=== PATIENT | male | born 1965 | race Caucasian/White ===

== ENCOUNTER 2019-06-27 05:05 | Inpatient (IN) ==
--- NOTE | 2019-06-10 22:18 | PAT Medication Instructions ---
Medication Instructions Date of Service June 10, 2019 Home Medications albuterol sulfate 2 puff INHALATION BID PRN amitriptyline 100 mg PO HS aripiprazole [Abilify] 30 mg PO QAM benztropine 2 mg PO QAM fluticasone furoate-vilanterol [Breo Ellipta] 1 inh INHALATION QAM furosemide 20 mg PO DAILY PRN ketoconazole % TOPICAL 2XWK lithium carbonate 600 mg PO BID meloxicam 7.5 mg PO BID omeprazole 40 mg PO QPM paroxetine HCl 40 mg PO QAM potassium chloride [Klor-Con] 20 meq PO DAILY PRN prazosin 3 mg PO HS rivastigmine tartrate 1.5 - 3 mg PO BID ropinirole 1.5 mg PO QAM ropinirole 4 mg PO HS ASK your surgeon for instructions meloxicam 7.5 mg PO BID STOP 5 DAYS BEFORE SURGERY: rivastigmine tartrate 1.5 - 3 mg PO BID STOP taking 24 hours before surgery ropinirole 1.5 mg PO QAM ropinirole 4 mg PO HS ketoconazole % TOPICAL 2XWK DO NOT take the morning of surgery furosemide 20 mg PO DAILY PRN potassium chloride [Klor-Con] 20 meq PO DAILY PRN Take morning of surgery With a small sip of water, OTHERWISE NOTHING TO EAT OR DRINK AFTER MIDNIGHT: albuterol sulfate 2 puff INHALATION BID PRN (if needed, and bring with you to the hospital) aripiprazole [Abilify] 30 mg PO QAM benztropine 2 mg PO QAM fluticasone furoate-vilanterol [Breo Ellipta] 1 inh INHALATION QAM lithium carbonate 600 mg PO BID paroxetine HCl 40 mg PO QAM Take evening before surgery albuterol sulfate 2 puff INHALATION BID PRN (if needed) amitriptyline 100 mg PO HS furosemide 20 mg PO DAILY PRN (if needed) lithium carbonate 600 mg PO BID omeprazole 40 mg PO QPM potassium chloride [Klor-Con] 20 meq PO DAILY PRN (if needed) prazosin 3 mg PO HS Other Notes If you have any questions please call us at [phone] or [phone] or [phone] or [phone]
--- NOTE | 2019-06-11 11:15 | Anesthesiology Consultation ---
Date of Service June 11, 2019 Assessment & Plan (1) Encounter for pre-operative examination: POSSIBLE DIFFICULT INTUBATION BASED ON VERY LIMITED NECK EXTENSION. Chart Review Chart Review: Acceptable Risk for Surgery (pending pre op testing) and Patient seen in Pre Admission Testing Teaching & Discussion Instructed NPO after midnight before surgery, except medications with 15 cc of water. Medication instructions provided according to the PAT guidelines. History Surgery Operation Date: 06/27/19 12:25 Proposed Procedures p C5 Corpectomy, Spinal Cord Monitoring - Adalberto Diaz DO Height/Weight Height: 5 ft 6 in Weight: 103.8 kg Allergies Allergy/AdvReac Type Severity Reaction Status Date / Time cortisone Allergy Mild Rash Verified 06/05/19 09:06 diazepam [From Valium] AdvReac Unknown Unknown Verified 06/05/19 09:06 Medications Home Medications Medication Instructions Recorded Confirmed Last Taken albuterol sulfate 2 puff INHALATION BID PRN 06/05/19 06/05/19 Unknown amitriptyline 100 mg PO HS 06/05/19 06/05/19 Unknown aripiprazole [Abilify] 30 mg PO QAM 06/05/19 06/05/19 Unknown benztropine 2 mg PO QAM 06/05/19 06/05/19 Unknown fluticasone furoate-vilanterol 1 inh INHALATION QAM 06/05/19 06/05/19 Unknown [Breo Ellipta] furosemide 20 mg PO DAILY PRN 06/05/19 06/05/19 Unknown ketoconazole % TOPICAL 2XWK 06/05/19 Unknown lithium carbonate 600 mg PO BID 06/05/19 06/05/19 Unknown meloxicam 7.5 mg PO BID 06/05/19 06/05/19 Unknown omeprazole 40 mg PO QPM 06/05/19 06/05/19 Unknown paroxetine HCl 40 mg PO QAM 06/05/19 06/05/19 Unknown potassium chloride [Klor-Con] 20 meq PO DAILY PRN 06/05/19 06/05/19 Unknown prazosin 3 mg PO HS 06/05/19 06/05/19 Unknown rivastigmine tartrate 1.5 - 3 mg PO BID 06/05/19 06/05/19 Unknown ropinirole 1.5 mg PO QAM 06/05/19 06/05/19 Unknown ropinirole 4 mg PO HS 06/05/19 06/05/19 Unknown Past Medical History Medical History Anxiety Asthma Breo daily, also albuterol BID Bipolar disorder Chronic obstructive pulmonary disease Depression Gastritis occ flares, on PPI GERD (gastroesophageal reflux disease) Hiatal hernia Migraine HX IN 20'S Night terrors Occasional tremors HANDS/OCC FEET F/U DR PANCHAL Osteoarthritis Post traumatic stress disorder Restless leg syndrome Sleep apnea NO DEVICE SOB (shortness of breath) on exertion Exercise / Class Metabolic Activity III < 4 Walking/Shop/Light housework (+SOB with 1 FOS, no CP. Using cane for ambulation.) Past Surgical History Surgical History H/O cervical spine surgery History of cholecystectomy History of colonoscopy History of esophagogastroduodenoscopy (EGD) Past Anesthesia History No Hx of Anesthesia Complications and No Family Hx of Anesthesia Complications History of PONV No Hx of PONV and Hx of Motion Sickness STOP BANG Total 6 Social History Smoking Status: Former smoker Do You Dip or Chew Tobacco: No Smoking End Date: QUIT 01/26/2008 Hx Alcohol Use: Yes Alcohol type: hard liquor alcohol intake frequency: holidays/special occasions only Hx Substance Use: No Review of Systems Pt denies any recent chest pain, shortness of breath, palpitations, cough, fever or URI. Physical Exam Vital Signs BP: 161/99 (138/86 repeat ~10mins later) P: 84bpm SPO2: 96% RA T: 98.1 F R: 14 Constitutional + obese ENMT Mouth: + dental restorations (Full upper and lower); no chipped teeth and no loose teeth Thyromental Distance: > or= 3.5 Finger Breadths (4) Mallampati Class: III Neck + short neck, + limited neck extension (VERY limited) and + facial hair (short goatee) Respiratory normal respiratory effort Auscultation: lungs clear to auscultation bilaterally and + diminished lung sounds (slightly, B/L) Cardiovascular Rate/Rhythm: regular rate and regular rhythm Heart Sounds: no murmur Extremities: no edema
--- NOTE | 2019-06-11 11:54 | XRay Report ---
TWO VIEW CHEST CLINICAL HISTORY: Preoperative examination. FINDINGS: PA and lateral chest radiographs are obtained. No prior studies are available for compariso n at the time of dictation. The heart is top normal for projection. There is mild bibasilar atelectas is. The lungs and pleural spaces are otherwise clear. There is no pneumothorax. The bony thorax appe ars intact. Cholecystectomy clips are noted in the right upper quadrant. IMPRESSION: No active disease in the chest. ACT 112: Negative or not required by law. Electronically signed by: Timmy Quigley M.D. 06/11/2019 11:53 AM
[2019-06-11 12:37] LABS: Appearance Urine Clear (Clear); Bilirubin Urine Negative (Negative); Blood Urine Negative (Negative); Color Urine Yellow; Glucose Urine UA Negative (Negative); Ketones Urine Negative (Negative); Leukocyte Esterase Urine Negative (Negative); Nitrite Urine Negative (Negative); Protein Urine Negative (Negative); Specific Gravity Urine 1.009 (1.000-1.030); Urobilinogen Urine Negative (Negative)
[2019-06-11 12:39] LABS: Basophils # (auto) 0.02 K/uL (0-0.2); Basophils % (auto) 0.4 %; Eosinophils # (auto) 0.21 K/uL (0-0.5); Eosinophils % (auto) 3.7 %; Hematocrit (blood only) 42.1 % (42-52); Hemoglobin 13.4 g/dL (14.0-18.0); Immature Granulocytes # (auto) 0.07 K/uL (0.00-0.02); Immature Granulocytes % (auto) 1.2 %; Lymphocytes # (auto) 1.18 K/uL (1.2-3.4); Lymphocytes % (auto) 20.7 %; Mean Corpuscular Hemoglobin 28.7 pg (25-34); Mean Corpuscular Hgb Conc 31.8 g/dL (32-36); Mean Corpuscular Volume 90.1 fL (80-100); Mean Platelet Volume 9.5 fL (7.4-10.4); Monocytes # (auto) 0.36 K/uL (0.11-0.59); Monocytes % (auto) 6.3 %; Neutrophils # (auto) 3.87 K/uL (1.4-6.5); Neutrophils % (auto) 67.7 %; Platelet Count 289 K/uL (130-400); RDW Coefficient of Variation 13.5 % (11.5-14.5); RDW Standard Deviation 44.4 fL (36.4-46.3); Red Blood Count 4.67 M/uL (4.7-6.1); White Blood Count 5.71 K/uL (4.8-10.8)
[2019-06-11 12:49] LABS: Partial Thromboplastin Time 25.8 Seconds (21.0-31.0); Prothrombin Time 9.8 Seconds (9.0-12.0)
[2019-06-11 13:11] LABS: BUN Creatinine Ratio 11.1 (10-20); Calcium 8.8 mg/dl (8.5-10.1); Creatinine Clr Calc Pharmacy 92.7 ml/min; Est GFR (African American) 94.6; Est GFR (Non-African American) 81.6; Potassium 4.2 mmol/L (3.5-5.1)
[2019-06-27] MEDS ORDERED: CEFAZOLIN 2000MG 2,000 MG/15 ML SYR IV SCH (06:00)
[2019-06-27] MEDS ORDERED: CeleBREX 200 MG CAP PO SCH (06:00)
[2019-06-27] MEDS ORDERED: ACETAMINOPHEN 500 MG TAB PO SCH (06:00)
[2019-06-27] MEDS ORDERED: LR 15ML/HR IV SCH (06:00)
[2019-06-27] MEDS ORDERED: GABAPENTIN 900 MG DOSE PO SCH (06:00)
[2019-06-27] MEDS ORDERED: HYDROmorphone INJ 2 MG/ML SYR/VIAL ONE (06:53)
[2019-06-27] MEDS ORDERED: LIDOCAINE HCL 2% 2 ML VIAL/AMP(20MG/ML) INFIL ONE (06:53)
[2019-06-27] MEDS ORDERED: PROPOFOL IV EMULSION 10 MG/ML 20 ML VIAL IV ONE ×2 (06:53→08:47)
[2019-06-27] MEDS ORDERED: fentaNYL citrate 100 MCG/2 ML VIAL ONE ×2 (06:53→08:30)
[2019-06-27] MEDS ORDERED: DEXAMETHASONE SOD INJ 4 MG/ML VIAL ONE ×2 (06:53→08:47)
[2019-06-27] MEDS ORDERED: ONDANSETRON INJ 2 MG/ML 2 ML VIAL ONE (06:53)
[2019-06-27] MEDS ORDERED: BACITRACIN INJ 50,000 UNIT VIAL ONE (06:59)
[2019-06-27] MEDS ORDERED: DexMEDEtomidine HCL IV 100 MCG/ML VIAL ONE (07:10)
[2019-06-27] MEDS ORDERED: PHENYLEPHRINE HCL 10 MG/ML VIAL ONE (07:12)
[2019-06-27] MEDS ORDERED: ATROPINE SULFATE 0.1 MG/ML 10ML SYR IV PRN (07:30)
[2019-06-27] MEDS ORDERED: ONDANSETRON INJ 2 MG/ML 2 ML VIAL IV PRN ×2 (07:30→13:50)
[2019-06-27] MEDS ORDERED: fentaNYL citrate 100 MCG/2 ML VIAL IV PRN (07:30)
[2019-06-27] MEDS ORDERED: PROMETHAZINE HCL 6.25 MG in SODIUM CHLORIDE 0.9% 50 ML IV PRN (07:30)
[2019-06-27] MEDS ORDERED: HYDROmorphone INJ 2 MG/ML SYR/VIAL IV PRN (07:30)
[2019-06-27] MEDS ORDERED: ePHEDrine sulfate 50 MG/ML AMP IV PRN (07:30)
--- NOTE | 2019-06-27 07:31 | History & Physical Bridge Note ---
Date of Service June 27, 2019 History & Physical Bridge Note I have examined the patient, reviewed the History & Physical and in the interval since the performance of the History & Physical I have noted the following changes of clinical significance: no changes noted
--- NOTE | 2019-06-27 07:32 | History & Physical Report ---
Date of Service June 27, 2019 Assessment & Plan (1) Cervical stenosis of spinal canal: C5 corpectomy Present on Admission?: Yes History of Present Illness Chief Complaint: Neck and arm pain Primary Care Provider: Andrés Vogel MD This is a 53-year-old male who presents with chronic persistent neck and arm symptoms. After failed extensive course of nonoperative care is here for surgical invention. Allergies Allergy/AdvReac Type Severity Reaction Status Date / Time cortisone Allergy Mild Rash Verified 06/05/19 09:06 diazepam [From Valium] AdvReac Mild blurred Verified 06/27/19 05:44 vision Home Medications Home Medications Medication Instructions Recorded Confirmed Type albuterol sulfate 2 puff INHALATION BID PRN 06/05/19 06/27/19 History amitriptyline 100 mg PO HS 06/05/19 06/27/19 History aripiprazole [Abilify] 30 mg PO QAM 06/05/19 06/27/19 History benztropine 2 mg PO QAM 06/05/19 06/27/19 History fluticasone furoate-vilanterol 1 inh INHALATION QAM 06/05/19 06/27/19 History [Breo Ellipta] furosemide 20 mg PO DAILY PRN 06/05/19 06/27/19 History ketoconazole 2 % TOPICAL 2XWK 06/05/19 06/27/19 History lithium carbonate 600 mg PO BID 06/05/19 06/27/19 History meloxicam 7.5 mg PO BID 06/05/19 06/27/19 History omeprazole 40 mg PO QPM 06/05/19 06/27/19 History paroxetine HCl 40 mg PO QAM 06/05/19 06/27/19 History potassium chloride [Klor-Con] 20 meq PO DAILY PRN 06/05/19 06/27/19 History prazosin 3 mg PO HS 06/05/19 06/27/19 History rivastigmine tartrate 1.5 - 3 mg PO BID 06/05/19 06/27/19 History ropinirole 1.5 mg PO QAM 06/05/19 06/27/19 History ropinirole 4 mg PO HS 06/05/19 06/27/19 History Past Med/Surg History Medical History Anxiety Asthma Breo daily, also albuterol BID Bipolar disorder Chronic obstructive pulmonary disease Depression Gastritis occ flares, on PPI GERD (gastroesophageal reflux disease) Hiatal hernia Migraine HX IN 20'S Night terrors Occasional tremors HANDS/OCC FEET F/U DR PANCHAL Osteoarthritis Post traumatic stress disorder Restless leg syndrome Sleep apnea NO DEVICE SOB (shortness of breath) on exertion Surgical History H/O cervical spine surgery History of cholecystectomy History of colonoscopy History of esophagogastroduodenoscopy (EGD) Social History Preferred Language: Wallisian Communication Ability: Effective Telegraphic Typewriter Installer Required: No Beliefs That Will Affect Care: None Current Living Situation: Alone Other Information That Helps Us Care for You: No Feels Safe at Home: Yes Safety Concerns: Feels Safe At This Time Smoking Status: Former smoker Do You Dip or Chew Tobacco: No ; Smoking End Date: QUIT 01/26/2008 ; Second Hand Exposure: Yes (MOTHER/SISTERS SMOKE) ; Hx Alcohol Use: Yes Alcohol type: hard liquor Hx Substance Use: No Physical Exam Physical Exam: Patient is alert and oriented neurologically intact. Results & Data Vital Signs (Past 12 Hours) Vital Signs Temp Pulse Resp BP Pulse Ox 06/27/19 05:50 37.1 C 88 18 161/105 H 93
[2019-06-27] MEDS ORDERED: NEOSTIGMINE METHYLSULFATE 1 MG/ML 10ML VIAL ONE (08:47)
[2019-06-27] MEDS ORDERED: ROCURONIUM BROMIDE 10 MG/ML 5 ML VIAL ONE (08:47)
[2019-06-27] MEDS ORDERED: GLYCOPYRROLATE 0.2 MG/ML VIAL ONE (08:47)
[2019-06-27] MEDS ORDERED: SUCCINYLCHOLINE 100MG/5ML SYR ONE (08:47)
[2019-06-27] MEDS ORDERED: ALBUMIN HUMAN 5% 12.5 GM/250 ML VIAL IV ONE (09:17)
--- NOTE | 2019-06-27 09:47 | Operative Report ---
Post Operative Report Pre & Post Diagnosis Operation Date: 06/27/19 07:45 Pre-Op Diagnosis: Cervical spinal stenosis with myeloradiculopathy Post-Op Diagnosis: Same I identified the patient and participated in the time-out.: Yes Procedure Operation Date: 06/27/19 07:45 Actual Procedures #1 anterior cervical corpectomy with bilateral foraminotomies C5. #2 anterior cervical arthrodesis C4-C6. #3 placement of peek cage 27 mm in height C4-C6. #4 placement of local harvested morselized autograft combined with DBM in the interbody cage. #5 placement of 5 complete screws from C4-C6. Surgeon Adalberto Diaz, DO Marketing And Public Relations Manager Carissa Meehan Estimated Blood Loss 550 Findings See Below Patient is 5 foot 6 inches tall weighing over 106 kg with a BMI in excess of 37. The patient's significant body habitus combined with an EBL created significant technical difficulty getting at least 40% increase in operative time. Specimens None Indications This is a 53-year-old male who presents with above-mentioned diagnosis after failing extensive course of nonoperative care is here for surgical intervention. Description of Procedure Patient was met with identified informed consent obtained. Patient was then taken to the operative suite underwent intubation placed in a supine position on the Ron table the head Desai superintendent overhead distribution. All bony prominences well- padded eyes inspected to ensure no external pressure placed upon the. This point the anterior cervical spine was prepped and draped in normal sterile fashion. The assistance of fluoroscopy identified the C5 vertebral body and a transverse incision was placed on the right anterior aspect of the cervical spine overlying this region. Sharp dissection with the assistance of bipolar electrocautery was performed down to and exposing the anterior cervical spine from C4-C6. A self-retaining retractor was placed. Then performed a complete discectomy of C4-5 out to the uncovertebral joints bilaterally followed by C5-6. Buchanan distracting pins were then placed in C4 and C6 to distract across the C5 vertebral body. A complete corpectomy was then performed including removal of all posterior annular fibers and longitudinal ligament. After complete decompression the endplates were burred to subcortical bleeding bone and a 27 mm peek cage filled with locally harvested morselized autograft and DBM tapped in position. Appropriate sized plate was then locked in position and the incision was then copiously irrigated explored to ensure no damage to surrounding structures remaining bleeding. A 10 round TASHIA drain was then inserted. Incision was closed with 2 Vicryl in a fashion of 4 Monocryl for final closure. Steri- Strip sterile dressings placed. Patient will continue PACU stable condition. Please note spinal cord monitoring was utilized that the procedure no changes noted. Lastly Carissa Meehan was present at the entire procedure involved the patient positioning complex portions of the surgery and final skin closure. I attest to the content of the Intraoperative Record and any orders documented therein. Any exceptions are noted below.
[2019-06-27] MEDS ORDERED: NALOXONE HCL 0.4 MG/1 ML VIAL/CARP ONE (09:52)
--- NOTE | 2019-06-27 10:29 | Fluoroscopy Report ---
FL cervical 2-3V CLINICAL HISTORY: 53 years-old Male presenting with C5 CORPECTOMY. TECHNIQUE: 4 fluoroscopic image(s) recorded as part of an intraoperative procedure. COMPARISON: None. FINDINGS/IMPRESSION: Anterior cervical discectomy and fusion of C4-C6 with C5 corpectomy. Normal anatomic alignment. Endot barbie tube and surgical sponges project over the anterior soft tissues of the neck. Please see surgical report for further details. Fluoroscopy dosage (mGy): 2.53. Fluoroscopy time: 9.6 seconds. Number or time of high level fluoroscopy (HLF), digital spot, or digital subtraction images: 1.6 seco nds. ACT 112: Negative or not required by law. Electronically signed by: Tj Caballero M.D. 06/27/2019 10:28 AM
[2019-06-27 11:42] LABS: iSTAT Allen Test Pass; iSTAT Arterial Blood Gas HCO3 28 meg/L (19-24); iSTAT Arterial Blood Gas pCO2 66 mmHg (35-46); iSTAT Arterial Blood Gas pH 7.24 (7.35-7.45); iSTAT Arterial Blood Gas pO2 123 mmHg (80-95); iSTAT Carbon Dioxide 30 mEq/l (24-31); iSTAT Site R Radial
--- NOTE | 2019-06-27 12:47 | CT Scan Report ---
CT head/brain wo con CT DOSE: 1015.22 mGy.cm HISTORY: Mental status change s/p c6 corpectomy. failure to wake. TECHNIQUE: Multiaxial CT images of the head were performed without the use of intravenous contrast. A dose lowering technique was utilized adhering to the principles of ALARA. Comparison: None. Findings: The paranasal sinuses and mastoid air cells are clear. The calvarium and skull base are int act. The ventricles and sulci are within normal limits. There is no mass, hematoma, midline shift, or acute infarct. Impression: No acute intracranial abnormality. ACT 112: Negative or not required by law. The above report was generated using voice recognition software. It may contain grammatical, syntax or spelling errors. Electronically signed by: Eddie Nielson M.D. 06/27/2019 12:46 PM
--- NOTE | 2019-06-27 12:55 | CT Scan Report ---
CT OF THE CERVICAL SPINE CLINICAL HISTORY: s/p c6 corpectomy. Failure to wake up after surgery. Loss of deep tendon reflexes.. COMPARISON STUDY: No previous studies for comparison. CT DOSE: TECHNIQUE: CT scan of the cervical spine was performed from the skull base to the thoracic inlet. Yazmin ges are reviewed in the axial, sagittal, and coronal planes. IV contrast was not administered for thi s examination. A dose lowering technique was utilized adhering to the principles of ALARA. FINDINGS: The visualized portions of the lung apices reveal no evidence of pneumothorax. There is gas present within the anterior neck, consistent with recent surgery. No acute fractures are visualized. There are postsurgical changes of a C5 corpectomy. There is an anterior cervical fusion with C4 and C 6 screws. There are multilevel degenerative changes. There is mild spinal canal narrowing at the superior C6 le khurram secondary to small posterior osteophytes. There is mild spinal canal narrowing at the C6-7 level. Is not possible to accurately assess the spinal cord or spinal canal contents on CT scanning. IMPRESSION: Postsurgical changes of a C5 corpectomy, and C4-C6 anterior cervical fusion ACT 112: Negative or not required by law. Electronically signed by: Shadi Mariee M.D. 06/27/2019 12:54 PM
[2019-06-27 13:02] LABS: iSTAT Allen Test Pass; iSTAT Arterial Blood Gas HCO3 27 meg/L (19-24); iSTAT Arterial Blood Gas pCO2 60 mmHg (35-46); iSTAT Arterial Blood Gas pH 7.26 (7.35-7.45); iSTAT Arterial Blood Gas pO2 89 mmHg (80-95); iSTAT Carbon Dioxide 29 mEq/l (24-31); iSTAT FiO2 35 %; iSTAT Site R Radial
--- NOTE | 2019-06-27 13:07 | Anesthesiology Progress Note ---
Date of Service June 27, 2019 Anesthesia Post Procedure Vital Signs Vital Signs: Temp Pulse Pulse Resp BP Pulse Ox 06/27/19 12:23 88 22 127/73 94 06/27/19 12:10 88 22 128/73 94 06/27/19 12:03 89 22 123/71 93 06/27/19 11:50 88 22 128/66 94 06/27/19 11:40 87 18 132/74 94 06/27/19 11:30 85 14 124/79 98 06/27/19 11:20 85 14 120/77 98 06/27/19 11:10 87 14 127/80 98 06/27/19 11:00 89 12 130/79 98 06/27/19 10:50 87 12 133/78 99 06/27/19 10:40 87 12 131/75 99 06/27/19 10:30 87 14 131/88 99 06/27/19 10:20 86 14 133/78 96 06/27/19 10:10 85 10 L 132/79 96 06/27/19 10:03 36.1 C L 85 10 L 128/77 98 06/27/19 05:50 37.1 C 88 18 161/105 H 93 Pain Intensity Neck: Pain Intensity: 7 Transfer of Care Handoff Completed per policy Notes Mental Status: alert / awake / arousable and see notes below Patient Amnestic to Procedure: Yes Nausea / Vomiting: adequately controlled Pain: adequately controlled Airway Patency, RR, SpO2: see Notes below BP & HR: stable & adequate Hydration State: stable & adequate Anesthetic Complications: no major complications apparent Notes: Intraoperative course complicated by epidural vein bleeding and ~500cc blood loss over a period of <20 minutes. This was treated with IV crystalloid, colloid, and pressors, and MAP was maintained throughout. Surgeon was able to achieve excellent hemostasis moving forward. On arrival to PACU, patient somnolent, unarousable to sternal rub. Breathing well, oral airway in place. After no change in his mental status over an hour period, we did check an ABG and focused neurological exam. His exam was non- focal, but deep tendon reflexes were markedly decreased bilaterally. ABG showed an acute on chronic hypercarbia. Output from his TASHIA drain was normal. Given this, he was placed on BiPAP with close airway monitoring for 30 minutes. Repeat ABG was slightly improved, but still showed significant hypercarbia and neurologic exam was unchanged. He was transported on BiPAP to radiology for a CT of his neck and head. Head CT was unremarkable and neck showed no obvious hematoma. By the time the patient arrived back at PACU he was awake and following commands, still with a non focal neurologic exam. I suspect at this point that his post operative somnolence was due to a combination of hypercarbia along with his cocktail of multiple psychiatric medications for bipolar disorder. Although a watershed stroke is still possible with a negative head CT, his current neurologic exam makes that extremely unlikely. As he will likely need BiPAP overnight and seems to have a sensitivity to narcotics and or other anesthetic medications, he would benefit from overnight observation in the ICU tonight. I have spoken with Dr Diaz who agrees and to the PA-C in the ICU who will accept the patient. Repeat ABG will be drawn after the patient's transfer.
[2019-06-27] MEDS ORDERED: ALBUTEROL HFA 8 GM INHALER INH PRN (13:50)
[2019-06-27] MEDS ORDERED: FAMOTIDINE 20 MG TAB PO PRN (13:50)
[2019-06-27] MEDS ORDERED: ACETAMINOPHEN 500 MG TAB PO PRN (13:50)
[2019-06-27] MEDS ORDERED: FUROSEMIDE 20 MG TAB PO PRN (13:50)
[2019-06-27] MEDS ORDERED: METOCLOPRAMIDE HCL INJ 5 MG/ML 2 ML VIAL IV PRN (13:50)
[2019-06-27] MEDS ORDERED: DO NOT ADMINISTER FLU VACCINE PRN (13:50)
[2019-06-27] MEDS ORDERED: ONDANSETRON 4 MG OD TAB PO PRN (13:50)
[2019-06-27] MEDS ORDERED: PROMETHAZINE HCL 12.5 MG in SODIUM CHLORIDE 0.9% 50 ML IV PRN (13:50)
[2019-06-27] MEDS ORDERED: POTASSIUM CHLORIDE PWD 20 MEQ PACK PO PRN (13:50)
[2019-06-27] MEDS ORDERED: DO NOT ADMINISTER PNEUMOCOCCAL VACCINE PRN (13:50)
[2019-06-27] MEDS ORDERED: TRAMADOL HCL 50 MG TABLET PO PRN (13:50)
[2019-06-27] MEDS ORDERED: NALOXONE HCL 0.4 MG/1 ML VIAL/CARP IV PRN (13:50)
[2019-06-27] MEDS ORDERED: ALUMINUM/MAGNESIUM SUSP 30 ML UDC PO PRN (13:50)
[2019-06-27] MEDS ORDERED: SOD PHOSPHATE/SOD BIPHOSPHATE ENEMA 132 ML BTL PR PRN (13:50)
[2019-06-27] MEDS ORDERED: LORazepam 0.5 MG TAB PO PRN (13:50)
[2019-06-27] MEDS ORDERED: MAGNESIUM HYDROXIDE SUSP 30 ML UDC PO PRN (13:50)
[2019-06-27] MEDS ORDERED: DEXAMETHASONE SOD PHOSPHATE 8 MG in SYRINGE 0 ML IV PRN (13:50)
[2019-06-27] MEDS ORDERED: RACEPINEPHRINE 2.25% NEBU SOLN 0.5 ML VIAL INH PRN (13:50)
[2019-06-27] MEDS ORDERED: ACETAMINOPHEN 1,000 MG/100 ML VIAL IV PRN (13:50)
[2019-06-27] MEDS ORDERED: HYDROmorphone INJ 0.5 MG/0.5 ML SYR IV PRN (13:50)
[2019-06-27] MEDS ORDERED: LORazepam 0.5 MG/1 ML VIAL IV PRN (13:50)
[2019-06-27 14:40] LABS: iSTAT Allen Test Pass; iSTAT Arterial Blood Gas HCO3 26 meg/L (19-24); iSTAT Arterial Blood Gas pCO2 51 mmHg (35-46); iSTAT Arterial Blood Gas pH 7.32 (7.35-7.45); iSTAT Arterial Blood Gas pO2 64 mmHg (80-95); iSTAT Carbon Dioxide 28 mEq/l (24-31); iSTAT FiO2 30 %; iSTAT Site R Radial
--- NOTE | 2019-06-27 14:49 | Consultation ---
Date of Consultation June 27, 2019 Assessment & Plan (1) Respiratory failure with hypercapnia: Postoperative respiratory failure with hypercapnia. Contributing factors could include sleep apnea, obesity hypoventilation syndrome, obstructive lung disease, sedation for anesthesia, analgesics, home meds. Admitted to ICU postoperatively. CCM consulted. Currently receiving BiPAP for ventilatory support. (2) Sleep apnea: History of JAMAL, but intolerant of CPAP. Now with acute hypercapnic respiratory failure. BiPAP as needed. Check nocturnal pulse oximetry prior to DC. Consider follow-up sleep study / retrying CPAP at home. (3) Chronic obstructive pulmonary disease: Bronchodilators as necessary. (4) Hypertension: Continue prazosin. (5) GERD (gastroesophageal reflux disease): Continue PPI. (6) Schizoaffective disorder: Continue usual meds as neuro status permits. (7) Bipolar disorder: Continue usual meds as neuro status permits. (8) Depression: Continue usual meds as neuro status permits. (9) Anxiety: Continue usual meds as neuro status permits. (10) Restless leg syndrome: Continue ropinirole as neuro status permits. Consider decreasing dose if ongoing problems with lethargy. (11) Obesity: Wt 106 kg, BMI 38. Associated sleep apnea. Heart healthy diet. (12) Alcohol use: Social history indicates consumption of hard liquor. Frequency / amount / last consumption not known. Monitor for signs / symptoms of alcohol withdrawal. (13) DVT prophylaxis: Per [facility] protocol. (14) Discharge planning issues: Discharge disposition per [facility]. Medical follow-up with Dr. Vogel. (15) Encounter for consultation: Thank you for this consultation. We will follow the patient with you during their hospital stay. My cell # is [phone]. You can reach a member of the [facility] Medicine Team 10/01 via pager @ [phone]. History of Present Illness Requesting Physician: Dr. Diaz Reason for Consultation: postoperative medical management Attending Physician: Adalberto Diaz DO History of Present Illness 53 YO male followed by Dr. Vogel in [place] [facility]. History of COPD/asthma, sleep apnea intolerant of CPAP, hypertension, GERD, and psychiatric disease (historical diagnoses include schizoaffective disorder, bipolar disorder, anxiety, depression). History of cervical spinal stenosis. Anterior cervical decompression/fusion performed earlier today. Patient was very somnolent postoperatively. ABG demonstrated hypercapnia. Admitted to ICU postoperatively. At the time of my assessment, patient was wearing BiPAP. He was still very somnolent at that time. Allergies Allergy/AdvReac Type Severity Reaction Status Date / Time cortisone Allergy Mild Rash Verified 06/05/19 09:06 diazepam [From Valium] AdvReac Mild blurred Verified 06/27/19 05:44 vision Home Medications Home Medications Medication Instructions Recorded Confirmed Type albuterol sulfate 2 puff INHALATION BID PRN 06/05/19 06/27/19 History amitriptyline 100 mg PO HS 06/05/19 06/27/19 History aripiprazole [Abilify] 30 mg PO QAM 06/05/19 06/27/19 History benztropine 2 mg PO QAM 06/05/19 06/27/19 History fluticasone furoate-vilanterol 1 inh INHALATION QAM 06/05/19 06/27/19 History [Breo Ellipta] furosemide 20 mg PO DAILY PRN 06/05/19 06/27/19 History ketoconazole 2 % TOPICAL 2XWK 06/05/19 06/27/19 History lithium carbonate 600 mg PO BID 06/05/19 06/27/19 History meloxicam 7.5 mg PO BID 06/05/19 06/27/19 History omeprazole 40 mg PO QPM 06/05/19 06/27/19 History paroxetine HCl 40 mg PO QAM 06/05/19 06/27/19 History potassium chloride [Klor-Con] 20 meq PO DAILY PRN 06/05/19 06/27/19 History prazosin 3 mg PO HS 06/05/19 06/27/19 History rivastigmine tartrate 1.5 - 3 mg PO BID 06/05/19 06/27/19 History ropinirole 1.5 mg PO QAM 06/05/19 06/27/19 History ropinirole 4 mg PO HS 06/05/19 06/27/19 History Patient History Medical History (Updated 06/27/19 @ 16:07 by Sandeep Quintana MD) Acute respiratory failure with hypercapnia Alcohol use Anxiety Asthma Breo daily, also albuterol BID Bipolar disorder Chronic obstructive pulmonary disease Depression Dyslipidemia Gastritis occ flares, on PPI GERD (gastroesophageal reflux disease) Hiatal hernia Hypertension Migraine HX IN 20'S Nephrolithiasis Night terrors Obesity Occasional tremors HANDS/OCC FEET F/U DR PANCHAL Osteoarthritis Post traumatic stress disorder Restless leg syndrome Schizoaffective disorder Sleep apnea NO DEVICE SOB (shortness of breath) on exertion Surgical History H/O cervical spine surgery History of cholecystectomy History of colonoscopy History of esophagogastroduodenoscopy (EGD) Family History Mother Asthma Psoriasis Father Heart disease Hypertension Sister Asthma Grandfather Diabetes Social History Preferred Language: Venezuelan Communication Ability: Effective Diversional Therapist'S Assistant Required: No Beliefs That Will Affect Care: None Current Living Situation: Alone Other Information That Helps Us Care for You: No Feels Safe at Home: Yes Safety Concerns: Feels Safe At This Time Smoking Status: Former smoker Do You Dip or Chew Tobacco: No ; Smoking End Date: QUIT 01/26/2008 ; Second Hand Exposure: Yes (MOTHER/SISTERS SMOKE) ; Hx Alcohol Use: Yes Alcohol type: hard liquor Hx Substance Use: No Review of Systems Review of Systems: Unobtainable due to reduced consciousness Physical Exam Constitutional: WD/WN, vitals as above + obese Eyes: PERRL, conjunctivae normal, anicteric sclerae ENMT: wearing BiPAP Neck: cervical collar Respiratory: Auscultation: + diminished lung sounds Cardiovascular: Rate/Rhythm: regular rate Heart Sounds: no gallop, no murmur and no cardiac rub Vessels: no JVD Extremities: normal capillary refill; no calf tenderness and no edema Gastrointestinal (Abdomen): Inspection/Auscultation: + abdomen distended; + abnormal bowel sounds (quiet) Percussion/Palpation: abdomen nontender Musculoskeletal: Extremities: no cyanosis and no clubbing TEDS and SCD's applied Skin: no rashes, warm and dry Psychiatric: Orientation: + not alert (sedated) Results & Data Vital Signs (Past 12 Hours) Vital Signs Temp Pulse Pulse Pulse Resp BP BP 06/27/19 14:08 37 C 88 8 L 125/85 06/27/19 13:58 74 24 06/27/19 13:53 87 17 125/77 06/27/19 13:51 74 24 06/27/19 13:47 94 H 14 137/89 06/27/19 13:16 37.2 C 94 H 14 132/93 06/27/19 13:06 37.2 C 97 H 15 137/89 06/27/19 12:55 37.2 C 96 H 22 144/88 H 06/27/19 12:47 107 H 24 148/95 H 06/27/19 12:20 88 22 127/73 06/27/19 12:10 88 22 128/73 06/27/19 12:03 89 22 123/71 06/27/19 11:50 88 22 128/66 06/27/19 11:40 87 18 132/74 06/27/19 11:30 85 14 124/79 06/27/19 11:20 85 14 120/77 06/27/19 11:10 87 14 127/80 06/27/19 11:00 89 12 130/79 06/27/19 10:50 87 12 133/78 06/27/19 10:40 87 12 131/75 06/27/19 10:30 87 14 131/88 06/27/19 10:20 86 14 133/78 06/27/19 10:10 85 10 L 132/79 06/27/19 10:03 36.1 C L 85 10 L 128/77 06/27/19 05:50 37.1 C 88 18 161/105 H Pulse Ox 06/27/19 14:08 92 06/27/19 13:58 97 06/27/19 13:53 96 06/27/19 13:51 97 06/27/19 13:47 97 06/27/19 13:16 96 06/27/19 13:06 96 06/27/19 12:55 96 06/27/19 12:47 96 06/27/19 12:20 94 06/27/19 12:10 94 06/27/19 12:03 93 06/27/19 11:50 94 06/27/19 11:40 94 06/27/19 11:30 98 06/27/19 11:20 98 06/27/19 11:10 98 06/27/19 11:00 98 06/27/19 10:50 99 06/27/19 10:40 99 06/27/19 10:30 99 06/27/19 10:20 96 06/27/19 10:10 96 06/27/19 10:03 98 06/27/19 05:50 93 Laboratory Results Preoperative labs were performed on 06/11/2019. Hemoglobin 13.4, white count 5710, platelet count 289,000. Normal electrolytes, BUN 12, creatinine 1.04, glucose 105. Laboratory Results - last 24 hr 06/27/19 06/27/19 06/27/19 11:23 12:21 14:27 Sample Site R Radial R Radial R Radial POC pH 7.24 L 7.26 L 7.32 L POC pCO2 66 H 60 H 51 H POC pO2 123 H 89 64 L POC HCO3 28 H 27 H 26 H POC Total CO2 30 29 28 POC Base Excess 1.0 0.0 0.0 POC ABG O2 Sat 98.0 H 95.0 90.0 [place] Test Pass Pass Pass O2 Delivery Device BIPAP BIPAP POC O2 Rate 20 20 POC FiO2 35 30 IPAP 10 10 Diagnostic Findings Preoperative chest x-ray 06/11/19 did not show any active disease. ECG Additional Comments: Preoperative EKG on 06/11/2019 showed normal sinus rhythm at 80/minute, no acute changes.
[2019-06-27] MEDS: LACTATED RINGER'S 1,000 ML IV SCH ×2 (15:00→23:53)
--- NOTE | 2019-06-27 15:57 | Critical Care Consultation ---
Date of Consultation June 27, 2019 Assessment & Plan (1) Acute respiratory failure with hypercapnia: Patient has acute hypercapnic and hypoxemic respiratory failure. This appears to be improving with BiPAP. We can transition him to nasal cannula. We will start him on Decadron 8 mg 3 times daily for 48 hours due to the soreness of throat and reduce swelling related to the surgery. He did lose 500 mL's of blood during the procedure and he has a TASHIA drain in his neck. We have a diffic ult airway kit and a cricothyroid kit near the bed. We will obtain a chest x- ray and abdominal film. N.p.o. for tonight. He does have a history of sleep apnea and will need follow-up in the sleep clinic. He would also likely benefit from outpatient pulmonary function testing and follow-up in the future. He does have a psychiatric history. Will avoid mind altering drugs. Orthopedic surgery will continue to follow him for his cervical surgery. (2) Obesity: (3) Cervical stenosis of spinal canal: History of Present Illness Reason for Consultation: Status post corpectomy with dural vein hematoma. Attending Physician: Adalberto Diaz DO History of Present Illness This is a 53-year-old male with a past medical history of obesity, obstructive sleep apnea noncompliant with CPAP therapy, tobacco abuse disorder who quit smoking and smoked for 25 years and a history of anxiety/bipolar disorder who presented for a C5 corpectomy. He was found to have an epidural vein hematoma of approximately 500 mL during the surgery. He is brought to the ICU for monitoring of his airway. He is currently in a c-collar. There is a difficult airway box nearby. The patient is complaining of some hoarseness of his voice and abdominal pain post procedure. I did personally discussed the case with the orthopedic surgeon who is recommending 8 mg of Decadron intravenous 3 times daily. Patient did have some hypercapnic respiratory failure after the procedure as noted on the blood gas. Subsequent blood gas shows improvement in ventilation. He is mentating reasonably well. We are transitioning him to nasal cannula. Patient denies any chest pain currently. Patient denies any fevers or chills. He does note a recent cough. Allergies Allergy/AdvReac Type Severity Reaction Status Date / Time cortisone Allergy Mild Rash Verified 06/05/19 09:06 diazepam [From Valium] AdvReac Mild blurred Verified 06/27/19 05:44 vision Home Medications Home Medications Medication Instructions Recorded Confirmed Type albuterol sulfate 2 puff INHALATION BID PRN 06/05/19 06/27/19 History amitriptyline 100 mg PO HS 06/05/19 06/27/19 History aripiprazole [Abilify] 30 mg PO QAM 06/05/19 06/27/19 History benztropine 2 mg PO QAM 06/05/19 06/27/19 History fluticasone furoate-vilanterol 1 inh INHALATION QAM 06/05/19 06/27/19 History [Breo Ellipta] furosemide 20 mg PO DAILY PRN 06/05/19 06/27/19 History ketoconazole 2 % TOPICAL 2XWK 06/05/19 06/27/19 History lithium carbonate 600 mg PO BID 06/05/19 06/27/19 History meloxicam 7.5 mg PO BID 06/05/19 06/27/19 History omeprazole 40 mg PO QPM 06/05/19 06/27/19 History paroxetine HCl 40 mg PO QAM 06/05/19 06/27/19 History potassium chloride [Klor-Con] 20 meq PO DAILY PRN 06/05/19 06/27/19 History prazosin 3 mg PO HS 06/05/19 06/27/19 History rivastigmine tartrate 1.5 - 3 mg PO BID 06/05/19 06/27/19 History ropinirole 1.5 mg PO QAM 06/05/19 06/27/19 History ropinirole 4 mg PO HS 06/05/19 06/27/19 History Patient History Medical History Alcohol use Anxiety Asthma Breo daily, also albuterol BID Bipolar disorder Chronic obstructive pulmonary disease Depression Dyslipidemia Gastritis occ flares, on PPI GERD (gastroesophageal reflux disease) Hiatal hernia Hypertension Migraine HX IN 20'S Nephrolithiasis Night terrors Obesity Occasional tremors HANDS/OCC FEET F/U DR PANCHAL Osteoarthritis Post traumatic stress disorder Restless leg syndrome Schizoaffective disorder Sleep apnea NO DEVICE SOB (shortness of breath) on exertion Surgical History H/O cervical spine surgery History of cholecystectomy History of colonoscopy History of esophagogastroduodenoscopy (EGD) Family History Mother Asthma Psoriasis Father Heart disease Hypertension Sister Asthma Grandfather Diabetes Social History Preferred Language: Belarusian Communication Ability: Effective House Principal Required: No Beliefs That Will Affect Care: None Current Living Situation: Alone Other Information That Helps Us Care for You: No Feels Safe at Home: Yes Safety Concerns: Feels Safe At This Time Smoking Status: Former smoker Do You Dip or Chew Tobacco: No ; Smoking End Date: QUIT 01/26/2008 ; Second Hand Exposure: Yes (MOTHER/SISTERS SMOKE) ; Hx Alcohol Use: Yes Alcohol type: hard liquor Hx Substance Use: No Review of Systems Review of Systems: Review of systems is limited due to the patient being on BiPAP and medical condition. Physical Exam Constitutional: Patient is obese. He has a c-collar in place. He is saturating well on BiPAP. He has no apparent distress. Eyes: PERRL, conjunctivae normal, anicteric sclerae ENMT: external ear and nose normal, oropharynx normal Neck: C collar in place. A TASHIA drain is also in place draining serosanguineous fluid. Bandage in place. Respiratory: normal respiratory effort, lungs clear to auscultation Cardiovascular: RRR, no murmur, no edema Gastrointestinal (Abdomen): Distended abdomen with minimal bowel sounds. Some tympany Musculoskeletal: no cyanosis or clubbing, extremities motor strength 5/5 Skin: no rashes, warm and dry Neurologic: PERRL, EOMI, accommodation nl, no face palsy, no dysarthria Psychiatric: A+Ox3, euthymic affect Lymphatic: no cervical or axillary lymphadenopathy Results & Data Vital Signs (Past 12 Hours) Vital Signs Temp Pulse Pulse Pulse Resp BP BP 06/27/19 14:08 98.6 F 88 8 L 125/85 06/27/19 13:58 74 24 06/27/19 13:53 87 17 125/77 06/27/19 13:51 74 24 06/27/19 13:47 94 H 14 137/89 06/27/19 13:16 99.0 F 94 H 14 132/93 06/27/19 13:06 99.0 F 97 H 15 137/89 06/27/19 12:55 99.0 F 96 H 22 144/88 H 06/27/19 12:47 107 H 24 148/95 H 06/27/19 12:20 88 22 127/73 06/27/19 12:10 88 22 128/73 06/27/19 12:03 89 22 123/71 06/27/19 11:50 88 22 128/66 06/27/19 11:40 87 18 132/74 06/27/19 11:30 85 14 124/79 06/27/19 11:20 85 14 120/77 06/27/19 11:10 87 14 127/80 06/27/19 11:00 89 12 130/79 06/27/19 10:50 87 12 133/78 06/27/19 10:40 87 12 131/75 06/27/19 10:30 87 14 131/88 06/27/19 10:20 86 14 133/78 06/27/19 10:10 85 10 L 132/79 06/27/19 10:03 97.0 F L 85 10 L 128/77 06/27/19 05:50 98.8 F 88 18 161/105 H Pulse Ox 06/27/19 14:08 92 06/27/19 13:58 97 06/27/19 13:53 96 06/27/19 13:51 97 06/27/19 13:47 97 06/27/19 13:16 96 06/27/19 13:06 96 06/27/19 12:55 96 06/27/19 12:47 96 06/27/19 12:20 94 06/27/19 12:10 94 06/27/19 12:03 93 06/27/19 11:50 94 06/27/19 11:40 94 06/27/19 11:30 98 06/27/19 11:20 98 06/27/19 11:10 98 06/27/19 11:00 98 06/27/19 10:50 99 06/27/19 10:40 99 06/27/19 10:30 99 06/27/19 10:20 96 06/27/19 10:10 96 06/27/19 10:03 98 06/27/19 05:50 93 Coding Level of Care Code 90129 Inpt Consult Level 4 Diagnoses Acute respiratory failure with hypercapnia J96.02 Obesity E66.01; Z68.37 Obesity type: due to excess calories Obesity classification: adult class 2 (BMI 35 - 39.9) Body mass index: BMI 37.0-37.9 Serious obesity comorbidity presence: with serious comorbidity Cervical stenosis of spinal canal M48.02 (1) Obesity Obesity type: due to excess calories Obesity classification: adult class 2 (BMI 35 - 39.9) Body mass index: BMI 37.0-37.9 Serious obesity comorbidity presence: with serious comorbidity Qualified Code(s): E66.01 - Morbid (severe) obesity due to excess calories; Z68.37 - Body mass index (BMI) 37.0-37.9, adult
--- NOTE | 2019-06-27 16:14 | XRay Report ---
XR chest 1V portable CLINICAL HISTORY: Hypoxia, hypercapnia dyspnea COMPARISON STUDY: 06/11/2019 FINDINGS: Moderate cardiac enlargement. Probable parenchymal infiltrate left base. Poor visibility le ft hemidiaphragm. Lungs otherwise appear clear. IMPRESSION: 1. Moderate cardiac enlargement. 2. Infiltrate left base. ACT 112: Negative or not required by law. The above report was generated using voice recognition software. It may contain grammatical, syntax or spelling errors. Electronically signed by: Eddie Nielson M.D. 06/27/2019 4:13 PM
[2019-06-27 16:24] LABS: Basophils # (auto) 0.01 K/uL (0-0.2); Basophils % (auto) 0.1 %; Eosinophils # (auto) 0.01 K/uL (0-0.5); Eosinophils % (auto) 0.1 %; Hematocrit (blood only) 39.1 % (42-52); Hemoglobin 12.3 g/dL (14.0-18.0); Immature Granulocytes # (auto) 0.05 K/uL (0.00-0.02); Immature Granulocytes % (auto) 0.6 %; Lymphocytes # (auto) 0.31 K/uL (1.2-3.4); Lymphocytes % (auto) 3.9 %; Mean Corpuscular Hemoglobin 28.1 pg (25-34); Mean Corpuscular Hgb Conc 31.5 g/dL (32-36); Mean Corpuscular Volume 89.3 fL (80-100); Mean Platelet Volume 9.3 fL (7.4-10.4); Monocytes # (auto) 0.11 K/uL (0.11-0.59); Monocytes % (auto) 1.4 %; Neutrophils % (auto) 93.9 %; Platelet Count 268 K/uL (130-400); RDW Coefficient of Variation 13.4 % (11.5-14.5); RDW Standard Deviation 43.9 fL (36.4-46.3); Red Blood Count 4.38 M/uL (4.7-6.1); White Blood Count 7.99 K/uL (4.8-10.8)
[2019-06-27 16:43] LABS: BUN Creatinine Ratio 10.2 (10-20); Calcium 8.5 mg/dl (8.5-10.1); Creatinine Clr Calc Pharmacy 79.9 ml/min; Est GFR (Non-African American) 67.3; Potassium 4.7 mmol/L (3.5-5.1)
--- NOTE | 2019-06-27 16:44 | XRay Report ---
KUB HISTORY: Abdominal distention post surgically COMPARISON: None. FINDINGS: No dilated loops of small bowel to suggest an obstruction. There is moderate well-formed st ool seen throughout the colon. Prior cholecystectomy. No renal calculi. No ureteral calculi. No pneu moperitoneum or pneumatosis. IMPRESSION: 1. No evidence of bowel obstruction. 2. Moderate well-formed stool within the colon. ACT 112: Negative or not required by law. Electronically signed by: Jasbir Shah M.D. 06/27/2019 4:43 PM
[2019-06-27] MEDS: BREO ~ ORDER AWAITING ACTION SCH (17:51)
[2019-06-27] MEDS: CEFAZOLIN 2000MG 2,000 MG/15 ML SYR IV SCH (17:51)
[2019-06-27] MEDS: DEXAMETHASONE SOD PHOSPHATE 8 MG in SYRINGE 0 ML IV SCH (20:48)
[2019-06-27] MEDS: LITHIUM CARBONATE SLOW REL 300 MG TAB PO SCH (20:48)
[2019-06-27] MEDS: PRAZOSIN HCL 1 MG CAP PO SCH (20:48)
[2019-06-27] MEDS: PANTOprazole 40 MG TAB PO SCH (20:49)
[2019-06-27] MEDS: AMITRIPTYLINE HCL 100 MG TAB PO SCH (20:49)
[2019-06-27] MEDS: DOCUSATE SODIUM/SENNA 50/8.6MG TAB PO SCH (20:50)
[2019-06-27] MEDS: OXYCODONE HCL IR 5 MG TAB (IMMEDIATE RELEASE) PO PRN (23:48)
[2019-06-28] MEDS: BREO ~ ORDER AWAITING ACTION SCH ×3 (00:14→14:24)
[2019-06-28] MEDS: CEFAZOLIN 2000MG 2,000 MG/15 ML SYR IV SCH (00:14)
[2019-06-28] MEDS: HYDROmorphone INJ 1 MG/ML SYRINGE IV PRN ×2 (00:37→17:11)
[2019-06-28 04:58] LABS: Hematocrit (blood only) 35.6 % (42-52); Hemoglobin 11.4 g/dL (14.0-18.0); Immature Granulocytes # (auto) 0.04 K/uL (0.00-0.02); Immature Granulocytes % (auto) 0.4 %; Lymphocytes # (auto) 0.38 K/uL (1.2-3.4); Lymphocytes % (auto) 3.6 %; Mean Corpuscular Hemoglobin 28.7 pg (25-34); Mean Corpuscular Volume 89.7 fL (80-100); Mean Platelet Volume 9.3 fL (7.4-10.4); Monocytes # (auto) 0.23 K/uL (0.11-0.59); Monocytes % (auto) 2.2 %; Neutrophils # (auto) 10.04 K/uL (1.4-6.5); Neutrophils % (auto) 93.8 %; Platelet Count 269 K/uL (130-400); RDW Coefficient of Variation 13.2 % (11.5-14.5); RDW Standard Deviation 43.2 fL (36.4-46.3); Red Blood Count 3.97 M/uL (4.7-6.1); White Blood Count 10.69 K/uL (4.8-10.8)
[2019-06-28 05:25] LABS: BUN Creatinine Ratio 11.7 (10-20); Calcium 8.5 mg/dl (8.5-10.1); Creatinine Clr Calc Pharmacy 83.6 ml/min; Est GFR (African American) 85.5; Est GFR (Non-African American) 73.8; Potassium 4.6 mmol/L (3.5-5.1)
[2019-06-28] MEDS: PARoxetine HCl 20 MG TAB PO SCH (08:02)
[2019-06-28] MEDS: ARIPiprazole 15 MG TAB PO SCH (08:02)
[2019-06-28] MEDS: LITHIUM CARBONATE SLOW REL 300 MG TAB PO SCH ×2 (08:02→21:18)
[2019-06-28] MEDS: BENZTROPINE MESYLATE 1 MG TAB PO SCH (08:03)
[2019-06-28] MEDS: OXYCODONE HCL IR 5 MG TAB (IMMEDIATE RELEASE) PO PRN ×3 (08:07→19:52)
[2019-06-28] MEDS: POLYETHYLENE (MIRALAX) 17 GM PACK PO SCH ×3 (08:13→17:51)
[2019-06-28] MEDS: DEXAMETHASONE SOD PHOSPHATE 8 MG in SYRINGE 0 ML IV SCH ×3 (08:15→20:38)
--- NOTE | 2019-06-28 09:58 | Orthopedic Progress Note ---
Date of Service June 28, 2019 Assessment & Plan (1) Cervical stenosis of spinal canal: Had an uneventful night and overall doing well this morning. Will continue with IV Decadron. Ambulate as tolerated continue to advance diet slowly. Maintain TASHIA drain. DVT prophylaxis is in the form of teds and SCDs. Continue with [place] J collar when out of bed. Anticipate discharge home tomorrow. Supervising Physician Co-Signing Physician Notes Dr. Adalberto Diaz Subjective Patient is postoperative day 1 C5 corpectomy. Currently in the ICU. Had an uneventful night. States left upper extremity pain has resolved. Currently tolerating a clear diet. Has mild dysphasia. No shortness of breath. TASHIA drain output last shift was 10 cc. Has not been out of bed yet. Review of Systems Review of Systems: All systems reviewed & are unremarkable except as noted in HPI & below Physical Exam Physical Exam: Sitting in bed. Alert and oriented x3. Strength is 5 5 bilateral biceps, triceps, deltoid. Cervical dressing is intact with TASHIA drain. No shortness of breath or use of accessory muscles. Speech is clear Constitutional: WD/WN, vitals as above well developed Eyes: normal visual coles by confrontation ENMT: external ear and nose normal, oropharynx normal Neck: normal visual inspection Respiratory: normal respiratory effort Cardiovascular: Extremities: normal capillary refill Gastrointestinal (Abdomen): Inspection/Auscultation: abdomen normal to inspection Musculoskeletal: no cyanosis or clubbing, extremities motor strength 5/5 Spine: + cervical collar present Extremities: extremities normal to inspection and strength 5/5 throughout Skin: no rashes, warm and dry Neurologic: normal touch/pain/proprioception and moves all extremities Results & Data Vital Signs (Past 12 Hours) Vital Signs Pulse Pulse Resp BP Pulse Ox 06/28/19 07:17 92 H 94 06/28/19 06:03 78 16 94 06/28/19 06:00 87 23 95 06/28/19 05:40 80 18 137/77 93 06/28/19 05:00 79 14 94 06/28/19 04:41 78 19 136/77 94 06/28/19 04:00 68 12 94 06/28/19 03:40 73 20 144/73 H 94 06/28/19 03:30 74 16 95 06/28/19 03:00 68 21 93 06/28/19 02:40 69 19 125/71 95 06/28/19 02:00 70 15 94 06/28/19 01:40 72 11 L 114/72 95 06/28/19 01:00 85 15 93 06/28/19 00:40 87 14 129/81 95 06/28/19 00:00 84 14 95 06/27/19 23:18 75 20 139/85 95 06/27/19 23:13 72 16 96 06/27/19 23:00 75 19 94 06/27/19 22:48 79 16 138/85 95 06/27/19 22:30 79 20 94 06/27/19 22:20 81 17 96 06/27/19 22:18 83 22 123/76 95 06/27/19 22:10 82 25 H 94 06/27/19 22:00 81 29 H 95
[2019-06-28] MEDS: LACTATED RINGER'S 1,000 ML IV SCH (10:13)
--- NOTE | 2019-06-28 11:45 | Critical Care Progress Note ---
Date of Service June 28, 2019 Assessment & Plan (1) Acute respiratory failure with hypercapnia: Patient doing much better today. Chest x-ray yesterday showed hypoventilation. Abdominal film was unremarkable. Patient is eating well. Saturating well on room air. He should use CPAP at night. He does have sleep apnea but is not on tolerant of the CPAP device at home. He is currently on Decadron and orthopedic surgery will discontinue this per their discretion. He did have some urinary retention of 1 L overnight and has a Finn catheter in place. Likely needs urology evaluation. He is safe to be transferred out of the ICU at this point. (2) Obesity: (3) Cervical stenosis of spinal canal: (4) Urinary retention: (5) Obstructive sleep apnea: Subjective Patient is doing very well today. He is sitting up in bed watching TV. He is able to take p.o. He does note some hoarseness of voice and dysphagia. Denies any chest pain, nausea or vomiting. Physical Exam Eyes: PERRL, conjunctivae normal, anicteric sclerae ENMT: external ear and nose normal, oropharynx normal Respiratory: normal respiratory effort, lungs clear to auscultation Cardiovascular: RRR, no murmur, no edema Musculoskeletal: no cyanosis or clubbing, extremities motor strength 5/5 Skin: no rashes, warm and dry Neurologic: PERRL, EOMI, accommodation nl, no face palsy, no dysarthria Psychiatric: A+Ox3, euthymic affect Lymphatic: no cervical or axillary lymphadenopathy Results & Data Vital Signs (Past 12 Hours) Vital Signs Temp Pulse Pulse Resp BP Pulse Ox 06/28/19 11:32 80 18 92 06/28/19 11:00 73 14 92 06/28/19 10:40 62 7 L 120/68 93 06/28/19 10:20 91 06/28/19 10:00 77 31 H 94 06/28/19 09:40 74 21 127/62 92 06/28/19 09:00 82 12 91 06/28/19 08:40 91 H 19 141/75 H 92 06/28/19 07:40 98.2 F 90 19 138/70 93 06/28/19 07:17 92 H 94 06/28/19 06:03 78 16 94 06/28/19 06:00 87 23 95 06/28/19 05:40 80 18 137/77 93 06/28/19 05:00 79 14 94 06/28/19 04:41 78 19 136/77 94 06/28/19 04:00 68 12 94 06/28/19 03:40 73 20 144/73 H 94 06/28/19 03:30 74 16 95 06/28/19 03:00 68 21 93 06/28/19 02:40 69 19 125/71 95 06/28/19 02:00 70 15 94 06/28/19 01:40 72 11 L 114/72 95 06/28/19 01:00 85 15 93 06/28/19 00:40 87 14 129/81 95 06/28/19 00:00 84 14 95 Coding Level of Care Code 10447 Subseq Hosp Care Lvl 3 Diagnoses Acute respiratory failure with hypercapnia J96.02 Obesity E66.01; Z68.37 Obesity type: due to excess calories Obesity classification: adult class 2 (BMI 35 - 39.9) Serious obesity comorbidity presence: with serious comorbidity Body mass index: BMI 37.0-37.9 Cervical stenosis of spinal canal M48.02 Urinary retention R33.9 Obstructive sleep apnea G47.33 (1) Obesity Obesity type: due to excess calories Obesity classification: adult class 2 (BMI 35 - 39.9) Serious obesity comorbidity presence: with serious comorbidity Body mass index: BMI 37.0-37.9 Qualified Code(s): E66.01 - Morbid (severe) obesity due to excess calories; Z68.37 - Body mass index (BMI) 37.0-37.9, adult
--- NOTE | 2019-06-28 17:49 | Hospitalist Progress Note ---
Date of Service June 28, 2019 Assessment & Plan (1) Respiratory failure with hypercapnia: Status post C5 corpectomy on 06/27/2019 Management as per Ortho Postoperative respiratory failure with hypercapnia. Contributing factors could include sleep apnea, obesity hypoventilation syndrome, obstructive lung disease, sedation for anesthesia, analgesics, home meds. Admitted to ICU postoperatively. CCM consulted. Currently receiving BiPAP for ventilatory support. Symptomatically much improved without any shortness of breath and/or wheezing at rest Saturating normally at room air We will transfer the patient to medical floor (2) Sleep apnea: History of JAMAL, but intolerant of CPAP. Now with acute hypercapnic respiratory failure. BiPAP as needed. Check nocturnal pulse oximetry prior to DC. Consider follow-up sleep study / retrying CPAP at home. We will get nocturnal pulse oximetry tonight Was advised to have a sleep study as an outpatient (3) Chronic obstructive pulmonary disease: Bronchodilators as necessary. No significant wheezing (4) Hypertension: Continue prazosin. (5) GERD (gastroesophageal reflux disease): Continue PPI. (6) Schizoaffective disorder: Continue usual meds as neuro status permits. (7) Bipolar disorder: Continue usual meds as neuro status permits. (8) Depression: Continue usual meds as neuro status permits. (9) Anxiety: Continue usual meds as neuro status permits. (10) Restless leg syndrome: Continue ropinirole as neuro status permits. Consider decreasing dose if ongoing problems with lethargy. (11) Obesity: Wt 106 kg, BMI 38. Associated sleep apnea. Heart healthy diet. (12) Alcohol use: Social history indicates consumption of hard liquor. Frequency / amount / last consumption not known. Monitor for signs / symptoms of alcohol withdrawal. (13) DVT prophylaxis: Per [facility] protocol. (14) Discharge planning issues: Discharge disposition per [facility]. Medical follow-up with Dr. Vogel. (15) Encounter for consultation: Thank you for this consultation. We will follow the patient with you during their hospital stay. Medically stable to be transferred to medical floor Subjective 06/28/2019 Patient was seen and examined in ICU He is status post C5 corpectomy and was transferred to ICU with desaturation and respiratory failure He has been feeling a lot better since this morning and denies any shortness of breath, palpitation or chest pain He is not requiring any oxygen at rest Review of Systems Review of Systems: All systems reviewed and are unremarkable except as noted below Respiratory: no cough, no chest congestion, no dyspnea and no wheezing Musculoskeletal: Complains to have some neck pain Physical Exam Physical Exam: Lying in bed comfortably Constitutional: well developed, well nourished and + obese Eyes: PERRL, conjunctivae normal, anicteric sclerae ENMT: external ear and nose normal, oropharynx normal Respiratory: no respiratory distress Auscultation: + diminished lung sounds Cardiovascular: Rate/Rhythm: regular rate Heart Sounds: no gallop, no mu rmur and no cardiac rub Vessels: no JVD Extremities: normal capillary refill; no calf tenderness and no edema Gastrointestinal (Abdomen): Inspection/Auscultation: + abdomen distended; + abnormal bowel sounds (quiet) Percussion/Palpation: abdomen nontender Musculoskeletal: Extremities: no cyanosis and no clubbing Skin: no rashes, warm and dry Psychiatric: Orientation: + not alert (sedated) Lymphatic: no cervical or axillary lymphadenopathy Results & Data Vital Signs (Past 12 Hours) Vital Signs Temp Pulse Pulse Pulse Resp BP BP 06/28/19 16:00 36.7 C 70 15 132/78 06/28/19 15:26 70 18 06/28/19 13:40 73 18 123/66 06/28/19 12:41 76 17 93/63 L 06/28/19 11:40 79 24 120/56 L 06/28/19 11:32 80 18 06/28/19 11:00 73 14 06/28/19 10:40 62 7 L 120/68 06/28/19 10:20 06/28/19 10:00 77 31 H 06/28/19 09:40 74 21 127/62 06/28/19 09:00 82 12 06/28/19 08:40 91 H 19 141/75 H 06/28/19 07:40 36.8 C 90 19 138/70 06/28/19 07:17 92 H 06/28/19 06:03 78 16 06/28/19 06:00 87 23 Pulse Ox 06/28/19 16:00 93 06/28/19 15:26 92 06/28/19 13:40 91 06/28/19 12:41 94 06/28/19 11:40 96 06/28/19 11:32 92 06/28/19 11:00 92 06/28/19 10:40 93 06/28/19 10:20 91 06/28/19 10:00 94 06/28/19 09:40 92 06/28/19 09:00 91 06/28/19 08:40 92 06/28/19 07:40 93 06/28/19 07:17 94 06/28/19 06:03 94 06/28/19 06:00 95 Laboratory Results Short CBC 06/28/19 Range/Units 04:39 WBC 10.69 (4.8-10.8) K/uL Hgb 11.4 L (14.0-18.0) g/dL Hct 35.6 L (42-52) % Plt Count 269 (130-400) K/uL BMP 06/28/19 04:39 Sodium 137 Potassium 4.6 Chloride 106 Carbon Dioxide 28 BUN 13 Creatinine 1.13 Glucose 147 H Calcium 8.5 Medications Administered Current Inpatient Medications Acetaminophen (Tylenol) 1,000 mg PO Q8H PRN PRN Reason: MILD Pain Rating 1,2,3 Stop: 07/27/19 13:49 Al Hydrox/Mg Hydrox/Simethicone (Maalox) 30 ml PO Q6H PRN PRN Reason: Dyspepsia Stop: 07/27/19 13:49 Albuterol (Ventolin Hfa) 2 puffs INH BID PRN PRN Reason: Wheezing Stop: 07/27/19 13:49 Amitriptyline HCl (Elavil) 100 mg PO [facility] Stop: 07/27/19 20:59 Last Admin: 06/27/19 20:49 Dose: 100 mg Documented by: A[facility]ipraz[facility] ([facility]il[facility]) [facility] [place]: 07/28/19 08:59 Last Admin: 06/28/19 08:02 Dose: 30 mg Documented by: Benztropine Mesylate (Cogentin) 2 mg PO QAM [facility] Stop: 07/28/19 08:59 Last Admin: 06/28/19 08:03 Dose: 2 mg Documented by: Bisacodyl (Dulcolax) 10 mg [place] DAILY PRN PRN Reason: Constipation Stop: 07/29/19 09:48 Diphenhydramine HCl (Benadryl Capsule) 25 mg PO Q6H PRN PRN Reason: Allergic Rhinitis/Insomnia Stop: 07/27/19 13:49 Epinephrine (Raccemic Epinephrine 2.25% 0.5ml) 0.5 ml INH NOW PRN PRN Reason: if stridor present Stop: 07/27/19 13:49 Famotidine (Pepcid) 20 mg PO Q12H PRN PRN Reason: Dyspepsia Stop: 07/27/19 13:49 Furosemide (Lasix) 20 mg PO DAILY PRN PRN Reason: Edema Stop: 07/27/19 13:49 Hydromorphone HCl (Dilaudid) 0.5 mg IV Q3H PRN PRN Reason: moderate pain (scale 4-6) Stop: 07/11/19 13:49 Hydromorphone HCl (Dilaudid) 1 mg IV Q3H PRN PRN Reason: severe pain (scale 7-10) Stop: 07/11/19 13:49 Last Admin: 06/28/19 17:11 Dose: 1 mg Documented by: Hydroxyzine HCl (Vistaril) 25 mg PO Q8H PRN PRN Reason: Anxiety Stop: 07/27/19 13:49 Dexamethasone Sodium Phosphate (8 mg/ Syringe) 2 mls @ 1 mls/min IV NOW PRN PRN Reason: stridor Stop: 07/27/19 13:49 Lorazepam (Ativan) 0.5 mg in 1 mls @ 1 mls/min IV Q8H PRN PRN Reason: Sedation/Anxiety Stop: 07/27/19 13:49 Promethazine HCl 12.5 mg/ (Sodium Chloride) 50.5 mls @ 202 mls/hr IV Q6H PRN PRN Reason: Nausea &/or Vomiting Stop: 07/27/19 13:49 Dexamethasone Sodium Phosphate (8 mg/ Syringe) 2 mls @ 1 mls/min IV TID [place] Stop: 07/27/19 20:59 Last Admin: 06/28/19 14:24 Dose: 1 mls/min Documented by: Influenza Virus Vaccine Quadrival (Flu Vaccine, Do Not Administer) 1 ea N/A PRN PRN PRN Reason: Notification Stop: 07/27/19 13:49 [place] Carbonate (Lithobid) 600 mg PO BID [place] Stop: 07/27/19 20:59 Last Admin: 06/28/19 08:02 Dose: 600 mg Documented by: Lorazepam (Ativan) 0.5 mg PO Q8H PRN PRN Reason: sedation/anxiety Stop: 07/27/19 13:49 Magnesium Hydroxide (Milk Of Magnesia) 30 ml PO Q24H PRN PRN Reason: Constipation Stop: 07/27/19 13:49 Metoclopramide HCl (Reglan) 10 mg IV Q6H PRN PRN Reason: Nausea &/or Vomiting Stop: 07/27/19 13:49 Naloxone HCl (Narcan) 0.1 mg IV Q5M PRN PRN Reason: Oversedation/respiratory dep Stop: 07/27/19 13:49 Ondansetron HCl (Zofran) 4 mg IV Q6H PRN PRN Reason: Nausea &/or Vomiting Stop: 07/27/19 13:49 Ondansetron HCl (Zofran Odt) 4 mg PO Q6H PRN PRN Reason: Nausea Stop: 07/27/19 13:49 Oxycodone HCl (Roxicodone Immediate Rel) 5 - 10 mg PO Q4H PRN PRN Reason: Pain Stop: 07/11/19 13:49 Last Admin: 06/28/19 16:03 Dose: 10 mg Documented by: Pantoprazole Sodium (Protonix) 40 mg PO QPM [place] Stop: 07/27/19 20:59 Last Admin: 06/27/19 20:49 Dose: 40 mg Documented by: Paroxetine HCl (Paxil) 40 mg PO QAM [facility] Stop: 07/28/19 08:59 Last Admin: 06/28/19 08:02 Dose: 40 mg Documented by: Pneumococcal Polyvalent Vaccine (Pneumococcal Vacc, Do Not Administer) 1 ea N/A PRN PRN PRN Reason: Notification Stop: 07/27/19 13:49 Polyethylene Glycol (Miralax Powder Packet) 17 gm PO Q6 [facility] Stop: 07/28/19 09:48 Last Admin: 06/28/19 11:40 Dose: 17 gm Documented by: Potassium Chloride (Klor-Con Pwd) 20 meq PO DAILY PRN PRN Reason: Edema Stop: 07/27/19 13:49 Prazosin HCl (Prazosin Hcl) 3 mg PO HS [facility] Stop: 07/27/19 20:59 Last Admin: 06/27/19 20:48 Dose: 3 mg Documented by: Fluticasone/Salmeterol (Advair Diskus 100/50) 1 puffs INH BID [place] Stop: 07/28/19 20:59 Senna/Docusate Sodium (Senokot S) 2 tab PO HS [place] Stop: 07/27/19 20:59 Last Admin: 06/27/19 20:50 Dose: Not Given Documented by: Sodium Biphosphate/Sodium Phosphate (Fleet Enema) 132 ml [place] ONE PRN PRN Reason: Constipation Stop: 07/27/19 13:49 Tramadol HCl (Ultram) 50 - 100 mg PO Q4H PRN PRN Reason: Moderate-Severe pain Stop: 07/27/19 13:49 Last Admin: 06/27/19 21:45 Dose: 50 mg Documented by: (1) Obesity Obesity type: due to excess calories Obesity classification: adult class 2 (BMI 35 - 39.9) Serious obesity comorbidity presence: with serious comorbidity Body mass index: BMI 37.0-37.9 Qualified Code(s): E66.01 - Morbid (severe) obesity due to excess calories; Z68.37 - Body mass index (BMI) 37.0-37.9, adult
[2019-06-28] MEDS: FLUTICASONE/SALMETEROL 100/50 (ADVAIR) 14 PUFF/1 INHALER INH SCH (20:38)
[2019-06-28] MEDS: DOCUSATE SODIUM/SENNA 50/8.6MG TAB PO SCH (21:17)
[2019-06-28] MEDS: AMITRIPTYLINE HCL 100 MG TAB PO SCH (21:18)
[2019-06-28] MEDS: PANTOprazole 40 MG TAB PO SCH (21:18)
[2019-06-28] MEDS: PRAZOSIN HCL 1 MG CAP PO SCH (21:18)
[2019-06-29] MEDS: OXYCODONE HCL IR 5 MG TAB (IMMEDIATE RELEASE) PO PRN ×3 (00:16→12:55)
[2019-06-29] MEDS: POLYETHYLENE (MIRALAX) 17 GM PACK PO SCH ×3 (00:16→12:30)
[2019-06-29 05:43] LABS: Hematocrit (blood only) 35.4 % (42-52); Hemoglobin 11.2 g/dL (14.0-18.0); Immature Granulocytes # (auto) 0.07 K/uL (0.00-0.02); Immature Granulocytes % (auto) 0.5 %; Lymphocytes % (auto) 4.5 %; Mean Corpuscular Hemoglobin 28.6 pg (25-34); Mean Corpuscular Hgb Conc 31.6 g/dL (32-36); Mean Corpuscular Volume 90.3 fL (80-100); Mean Platelet Volume 9.9 fL (7.4-10.4); Monocytes # (auto) 0.38 K/uL (0.11-0.59); Monocytes % (auto) 2.9 %; Neutrophils # (auto) 12.17 K/uL (1.4-6.5); Neutrophils % (auto) 92.1 %; Platelet Count 307 K/uL (130-400); RDW Coefficient of Variation 13.4 % (11.5-14.5); RDW Standard Deviation 44.4 fL (36.4-46.3); Red Blood Count 3.92 M/uL (4.7-6.1); White Blood Count 13.22 K/uL (4.8-10.8)
[2019-06-29 06:25] LABS: BUN Creatinine Ratio 16.3 (10-20); Calcium 8.9 mg/dl (8.5-10.1); Creatinine Clr Calc Pharmacy 77.4 ml/min; Est GFR (African American) 74.3; Est GFR (Non-African American) 64.1; Potassium 3.9 mmol/L (3.5-5.1)
[2019-06-29] MEDS: BENZTROPINE MESYLATE 1 MG TAB PO SCH (08:24)
[2019-06-29] MEDS: DEXAMETHASONE SOD PHOSPHATE 8 MG in SYRINGE 0 ML IV SCH ×2 (08:24→13:56)
[2019-06-29] MEDS: FLUTICASONE/SALMETEROL 100/50 (ADVAIR) 14 PUFF/1 INHALER INH SCH (08:24)
[2019-06-29] MEDS: ARIPiprazole 15 MG TAB PO SCH (08:25)
[2019-06-29] MEDS: PARoxetine HCl 20 MG TAB PO SCH (08:25)
[2019-06-29] MEDS: LITHIUM CARBONATE SLOW REL 300 MG TAB PO SCH (08:25)
[2019-06-29] MEDS ORDERED: bisacodyL 10 MG SUPP PR PRN (09:49)
--- NOTE | 2019-06-29 15:06 | Hospitalist Progress Note ---
Date of Service June 29, 2019 Assessment & Plan (1) Respiratory failure with hypercapnia: Status post C5 corpectomy on 06/27/2019 Management as per Ortho Postoperative respiratory failure with hypercapnia. Contributing factors could include sleep apnea, obesity hypoventilation syndrome, obstructive lung disease, sedation for anesthesia, analgesics, home meds. Admitted to ICU postoperatively. CCM consulted. Currently receiving BiPAP for ventilatory support. Symptomatically much improved without any shortness of breath and/or wheezing at rest Saturating normally at room air We will transfer the patient to medical floor No symptoms overnight and remained stable Medically stable to be discharged (2) Sleep apnea: History of JAMAL, but intolerant of CPAP. Now with acute hypercapnic respiratory failure. BiPAP as needed. Check nocturnal pulse oximetry prior to DC. Consider follow-up sleep study / retrying CPAP at home. We will get nocturnal pulse oximetry tonight Was advised to have a sleep study as an outpatient Nocturnal pulse oximetry showed significant desaturation, prescription of oxygen was given but was denied by the insurance company He will have an outpatient pulse oximetry to qualify for oxygen. He cannot tolerate CPAP and/or BiPAP as he mentioned again to me Otherwise medically stable to be discharged (3) Chronic obstructive pulmonary disease: Bronchodilators as necessary. No significant wheezing (4) Hypertension: Continue prazosin. (5) GERD (gastroesophageal reflux disease): Continue PPI. (6) Schizoaffective disorder: Continue usual meds as neuro status permits. (7) Bipolar disorder: Continue usual meds as neuro status permits. (8) Depression: Continue usual meds as neuro status permits. (9) Anxiety: Continue usual meds as neuro status permits. (10) Restless leg syndrome: Continue ropinirole as neuro status permits. Consider decreasing dose if ongoing problems with lethargy. (11) Obesity: Wt 106 kg, BMI 38. Associated sleep apnea. Heart healthy diet. (12) Alcohol use: Social history indicates consumption of hard liquor. Frequency / amount / last consumption not known. Monitor for signs / symptoms of alcohol withdrawal. (13) DVT prophylaxis: Per [facility] protocol. (14) Discharge planning issues: Discharge disposition per [facility]. Medical follow-up with Dr. Vogel. (15) Encounter for consultation: Thank you for this consultation. We will follow the patient with you during their hospital stay. Subjective 06/28/2019 Patient was seen and examined in ICU He is status post C5 corpectomy and was transferred to ICU with desaturation and respiratory failure He has been feeling a lot better since this morning and denies any shortness of breath, palpitation or chest pain He is not requiring any oxygen at rest 06/29/2019 The patient was seen and examined in medical floor He has been doing fine without any significant symptoms Especially there is no shortness of breath and/or wheezing He still has the Finn and the primary care provider is trying to set up an appointment with urologist as an outpatient on discharge Review of Systems Review of Systems: All systems reviewed and are unremarkable except as noted below Physical Exam Physical Exam: Sitting on a chair without any acute symptoms Constitutional: well developed, well nourished and + obese Eyes: PERRL, conjunctivae normal, anicteric sclerae ENMT: external ear and nose normal, oropharynx normal Respiratory: no respiratory distress Auscultation: + diminished lung sounds Cardiovascular: Rate/Rhythm: regular rate Heart Sounds: no gallop, no murmur and no cardiac rub Vessels: no JVD Extremities: normal capillary refill; no calf tenderness and no edema Gastrointestinal (Abdomen): Inspection/Auscultation: + abdomen distended; + abnormal bowel sounds (quiet) Percussion/Palpation: abdomen nontender Musculoskeletal: Extremities: no cyanosis and no clubbing Skin: no rashes, warm and dry Psychiatric: Orientation: + not alert (sedated) Lymphatic: no cervical or axillary lymphadenopathy Results & Data Vital Signs (Past 12 Hours) Vital Signs Temp Pulse Pulse Resp BP BP Pulse Ox 06/29/19 13:27 36.9 C 77 15 138/72 122/78 95 06/29/19 11:57 36.9 C 77 15 138/72 95 06/29/19 11:48 75 14 91 06/29/19 08:00 36.9 C 59 L 14 122/78 92 06/29/19 04:09 78 14 149/82 H 92 06/29/19 03:15 57 L 16 96 Laboratory Results Short CBC 06/29/19 Range/Units 05:16 WBC 13.22 H (4.8-10.8) K/uL Hgb 11.2 L (14.0-18.0) g/dL Hct 35.4 L (42-52) % Plt Count 307 (130-400) K/uL BMP 06/29/19 05:16 Sodium 136 Potassium 3.9 D Chloride 103 Carbon Dioxide 26 BUN 21 H D Creatinine 1.27 Glucose 167 H Calcium 8.9 Medications Administered Current Inpatient Medications Acetaminophen (Tylenol) 1,000 mg PO Q8H PRN PRN Reason: MILD Pain Rating 1,2,3 Stop: 07/27/19 13:49 Last Admin: 06/29/19 07:05 Dose: 1,000 mg Documented by: Al Hydrox/Mg Hydrox/Simethicone (Maalox) 30 ml PO Q6H PRN PRN Reason: Dyspepsia Stop: 07/27/19 13:49 Albuterol (Ventolin Hfa) 2 puffs INH BID PRN PRN Reason: Wheezing Stop: 07/27/19 13:49 Amitriptyline HCl (Elavil) 100 mg PO [facility] Stop: 07/27/19 20:59 Last Admin: 06/28/19 21:18 Dose: 100 mg Documented by: [facility]ip[facility] (Abilify) [facility] [place] [place]: 07/28/19 08:59 Last Admin: 06/29/19 08:25 Dose: 30 mg Documented by: Benztropine Mesylate (Cogentin) 2 mg PO QAM [facility] Stop: 07/28/19 08:59 Last Admin: 06/29/19 08:24 Dose: 2 mg Documented by: Bisacodyl (Dulcolax) 10 mg [place] DAILY PRN PRN Reason: Constipation Stop: 07/29/19 09:48 Diphenhydramine HCl (Benadryl Capsule) 25 mg PO Q6H PRN PRN Reason: Allergic Rhinitis/Insomnia Stop: 07/27/19 13:49 Epinephrine (Raccemic Epinephrine 2.25% 0.5ml) 0.5 ml INH NOW PRN PRN Reason: if stridor present Stop: 07/27/19 13:49 Famotidine (Pepcid) 20 mg PO Q12H PRN PRN Reason: Dyspepsia Stop: 07/27/19 13:49 Furosemide (Lasix) 20 mg PO DAILY PRN PRN Reason: Edema Stop: 07/27/19 13:49 Hydromorphone HCl (Dilaudid) 0.5 mg IV Q3H PRN PRN Reason: moderate pain (scale 4-6) Stop: 07/11/19 13:49 Hydromorphone HCl (Dilaudid) 1 mg IV Q3H PRN PRN Reason: severe pain (scale 7-10) Stop: 07/11/19 13:49 Last Admin: 06/28/19 17:11 Dose: 1 mg Documented by: Hydroxyzine HCl (Vistaril) 25 mg PO Q8H PRN PRN Reason: Anxiety Stop: 07/27/19 13:49 Dexamethasone Sodium Phosphate (8 mg/ Syringe) 2 mls @ 1 mls/min IV NOW PRN PRN Reason: stridor Stop: 07/27/19 13:49 Lorazepam (Ativan) 0.5 mg in 1 mls @ 1 mls/min IV Q8H PRN PRN Reason: Sedation/Anxiety Stop: 07/27/19 13:49 Promethazine HCl 12.5 mg/ (Sodium Chloride) 50.5 mls @ 202 mls/hr IV Q6H PRN PRN Reason: Nausea &/or Vomiting Stop: 07/27/19 13:49 Dexamethasone Sodium Phosphate (8 mg/ Syringe) 2 mls @ 1 mls/min IV TID [place] Stop: 07/27/19 20:59 Last Admin: 06/29/19 13:56 Dose: 1 mls/min Documented by: Influenza Virus Vaccine Quadrival (Flu Vaccine, Do Not Administer) 1 ea N/A PRN PRN PRN Reason: Notification Stop: 07/27/19 13:49 [place] Carbonate (Lithobid) 600 mg PO BID [facility] Stop: 07/27/19 20:59 Last Admin: 06/29/19 08:25 Dose: 600 mg Documented by: Lorazepam (Ativan) 0.5 mg PO Q8H PRN PRN Reason: sedation/anxiety Stop: 07/27/19 13:49 Magnesium Hydroxide (Milk Of Magnesia) 30 ml PO Q24H PRN PRN Reason: Constipation Stop: 07/27/19 13:49 Metoclopramide HCl (Reglan) 10 mg IV Q6H PRN PRN Reason: Nausea &/or Vomiting Stop: 07/27/19 13:49 Naloxone HCl (Narcan) 0.1 mg IV Q5M PRN PRN Reason: Oversedation/respiratory dep Stop: 07/27/19 13:49 Ondansetron HCl (Zofran) 4 mg IV Q6H PRN PRN Reason: Nausea &/or Vomiting Stop: 07/27/19 13:49 Ondansetron HCl (Zofran Odt) 4 mg PO Q6H PRN PRN Reason: Nausea Stop: 07/27/19 13:49 Oxycodone HCl (Roxicodone Immediate Rel) 5 - 10 mg PO Q4H PRN PRN Reason: Pain Stop: 07/11/19 13:49 Last Admin: 06/29/19 12:55 Dose: 10 mg Documented by: Pantoprazole Sodium (Protonix) 40 mg PO QPM [facility] Stop: 07/27/19 20:59 Last Admin: 06/28/19 21:18 Dose: 40 mg Documented by: Paroxetine HCl (Paxil) 40 mg PO QAM [facility] Stop: 07/28/19 08:59 Last Admin: 06/29/19 08:25 Dose: 40 mg Documented by: Pneumococcal Polyvalent Vaccine (Pneumococcal Vacc, Do Not Administer) 1 ea N/A PRN PRN PRN Reason: Notification Stop: 07/27/19 13:49 Polyethylene Glycol (Miralax Powder Packet) 17 gm PO Q6 [place] Stop: 07/28/19 09:48 Last Admin: 06/29/19 12:30 Dose: 17 gm Documented by: Potassium Chloride (Klor-Con Pwd) 20 meq PO DAILY PRN PRN Reason: Edema Stop: 07/27/19 13:49 Prazosin HCl (Prazosin Hcl) 3 mg PO HS [facility] Stop: 07/27/19 20:59 Last Admin: 06/28/19 21:18 Dose: 3 mg Documented by: Fluticasone/Salmeterol (Advair Diskus 100/50) 1 puffs INH BID [place] Stop: 07/28/19 20:59 Last Admin: 06/29/19 08:24 Dose: 1 puffs Documented by: Senna/Docusate Sodium (Senokot S) 2 tab PO HS [place] Stop: 07/27/19 20:59 Last Admin: 06/28/19 21:17 Dose: Not Given Documented by: Sodium Biphosphate/Sodium Phosphate (Fleet Enema) 132 ml [place] ONE PRN PRN Reason: Constipation Stop: 07/27/19 13:49 Tramadol HCl (Ultram) 50 - 100 mg PO Q4H PRN PRN Reason: Moderate-Severe pain Stop: 07/27/19 13:49 Last Admin: 06/27/19 21:45 Dose: 50 mg Documented by: (1) Obesity Obesity type: due to excess calories Obesity classification: adult class 2 (BMI 35 - 39.9) Serious obesity comorbidity presence: with serious comorbidity Body mass index: BMI 37.0-37.9 Qualified Code(s): E66.01 - Morbid (severe) obesity due to excess calories; Z68.37 - Body mass index (BMI) 37.0-37.9, adult
--- NOTE | 2019-06-29 15:39 | Discharge Summary ---
Date of Service June 29, 2019 Admission HPI Per Admitting Provider This is a 53-year-old male who presents with chronic persistent neck and arm symptoms. After failed extensive course of nonoperative care is here for surgical invention. Principal Diagnosis Cervical spinal stenosis with radiculopathy Discharge Data Allergies Allergy/AdvReac Type Severity Reaction Status Date / Time cortisone Allergy Mild Rash Verified 06/05/19 09:06 diazepam [From Valium] AdvReac Mild blurred Verified 06/27/19 05:44 vision Consultations 06/27/19 13:50 Consult Hospitalist Routine Consult [employer] Helper Routine 06/29/19 10:51 Consult [facility] curriculum coach Routine Procedures Performed Operation Date: 06/27/19 07:45 Actual Procedures p C5 Corpectomy, Spinal Cord Monitoring(Not Applicable) - Adalberto Diaz DO Ordered Studies 06/27/19 07:45 FL cervical 2-3V Routine FL fluoroscopy <1hr Routine 06/27/19 12:17 CT cervical spine wo con Stat CT head/brain wo con Stat Hospital Course (1) Cervical stenosis of spinal canal: Patient underwent multilevel anterior cervical discectomy and fusion tolerated so was taken to the ICU after surgery. He had a very slow wake up secondary to CO2 retention and possibly is medication. Nevertheless you recovered appropriately through the ICU that evening and was taken to orthopedic or the following day. He tolerated this well. His arm symptoms markedly improved. He is swallowing without difficulty. He did have a Finn placed urinary retention and was discharged home with this. On the day of discharge with good strength testing was comfortable. Discharge orders instructions can be found the chart for further review. Total Time Total Time Spent Total Time Spent (In Minutes): 20 minutes Discharge Plan Discharge Items Patient Disposition: Home - Home Health Services Reason For Visit: Spinal Stenosis, Cervical Region, Spondylosis Discharge Diagnosis: ACTIVITY RECOMMENDATIONS: SELF CARE INSTRUCTIONS AFTER CERVICAL FUSIONS 1. No smoking. Smoking drastically decreases the chance of a solid fusion. 2. No bending, lifting more than 5 pounds, or twisting (roll like a log when turning in bed). 3. You may shower 3 days after surgery. Thoroughly dry wound. Do not soak in the tub. 4. Cervical collar: Must be worn at all times including sleeping. You may remove the brace only to bath, eat and if you are sitting in a recliner. 5. Please walk as much as you can for exercise. Gradually increase the distance that you walk as your endurance increases. SPECIAL CARE INSTRUCTIONS: VERY IMPORTANT TO READ AND REVIEW A. Do not take any anti-inflammatory medications (i.e. Indocin, Advil, Aspirin, Naprosyn, Aleve, Motrin, etc.) as these may inhibit the chance of a solid fusion. Tylenol is okay to take. B. Your surgical incision has been closed with a cosmetic suture under the skin that will dissolve in about 6 weeks. In 14 days, you can use a pair of clean scissors and cut the suture that is left outside of the skin at the ends of your incision. C. Complications are uncommon, but please contact us if you have any signs or symptoms of: 1. wound infection (fever higher than 102.5 degrees F, redness, separation of wound, drainage, or increasing pain from the incision) 2. blood clots in legs (pain, swelling, redness and warmth in legs) 3. urinary tract infection (fever higher than 102.5 degrees, burning upon urination or increased frequency of urination) 4. nerve problems (inability to walk on your toes or heels, numbness, loss of bowel or bladder control) 5. any other symptoms that concern you. D. Please call the office at if you have any concerns or questions about your operation or recovery. MANAGING PAIN AFTER SPINAL SURGERY 1. Narcotic medication is intended for short-term use and will be provided for surgical pain. Surgical pain usually lasts for a period of 4-6 weeks. Narcotic medication includes Percocet, Vicodin, Darvocet, Tylenol #3 or Lortab. 2. Longer-term pain is more appropriately treated with non-narcotic medication such as Tylenol ES. 3. Muscle spasm is not appropriately treated with narcotics. Muscle relaxers such as Soma, Flexeril or Skelaxin can be used along with Tylenol ES. 4. Remember that we all live with some "aches and pains". This is not unusual or uncommon after an injury or as we get older. 5. We will provide appropriate medication within the normal guidelines of their prescribed use. We will also be very cautious and aware of potential abuse and extended duration of patients' medication needs. 6. Please allow 2-3 days to process refills. Prescriptions will not be mailed but must be picked up at the office. FOLLOW UP VISIT: Keep your scheduled follow-up appointment. Any questions, please call the office at . Activity: As commented below Non-emergency contact: Primary Care Provider Call non-emergency contact if: you have any medication questions Follow-up/Referrals: Andrés Vogel MD [Primary Care Provider] - Diet: Regular Addtl Attending Provider Instructions: ACTIVITY RECOMMENDATIONS: SELF CARE INSTRUCTIONS AFTER CERVICAL FUSIONS 1. No smoking. Smoking drastically decreases the chance of a solid fusion. 2. No bending, lifting more than 5 pounds, or twisting (roll like a log when turning in bed). 3. You may shower 3 days after surgery. Thoroughly dry wound. Do not soak in the tub. 4. Cervical collar: Must be worn at all times including sleeping. You may remove the brace only to bath, eat and if you are sitting in a recliner. 5. Please walk as much as you can for exercise. Gradually increase the distance that you walk as your endurance increases. SPECIAL CARE INSTRUCTIONS: VERY IMPORTANT TO READ AND REVIEW A. Do not take any anti-inflammatory medications (i.e. Indocin, Advil, Aspirin, Naprosyn, Aleve, Motrin, etc.) as these may inhibit the chance of a solid fusion. Tylenol is okay to take. B. Your surgical incision has been closed with a cosmetic suture under the skin that will dissolve in about 6 weeks. In 14 days, you can use a pair of clean scissors and cut the suture that is left outside of the skin at the ends of your incision. C. Complications are uncommon, but please contact us if you have any signs or symptoms of: 1. wound infection (fever higher than 102.5 degrees F, redness, separation of wound, drainage, or increasing pain from the incision) 2. blood clots in legs (pain, swelling, redness and warmth in legs) 3. urinary tract infection (fever higher than 102.5 degrees, burning upon urination or increased frequency of urination) 4. nerve problems (inability to walk on your toes or heels, numbness, loss of bowel or bladder control) 5. any other symptoms that concern you. D. Please call the office at if you have any concerns or questions about your operation or recovery. MANAGING PAIN AFTER SPINAL SURGERY 1. Narcotic medication is intended for short-term use and will be provided for surgical pain. Surgical pain usually lasts for a period of 4-6 weeks. Narcotic medication includes Percocet, Vicodin, Darvocet, Tylenol #3 or Lortab. 2. Longer-term pain is more appropriately treated with non-narcotic medication such as Tylenol ES. 3. Muscle spasm is not appropriately treated with narcotics. Muscle relaxers such as Soma, Flexeril or Skelaxin can be used along with Tylenol ES. 4. Remember that we all live with some "aches and pains". This is not unusual or uncommon after an injury or as we get older. 5. We will provide appropriate medication within the normal guidelines of their prescribed use. We will also be very cautious and aware of potential abuse and extended duration of patients' medication needs. 6. Please allow 2-3 days to process refills. Prescriptions will not be mailed but must be picked up at the office. FOLLOW UP VISIT: Keep your scheduled follow-up appointment. Any questions, please call the office at . Pending Studies at Discharge: No Stand-Alone Forms: My [facility], Opioid Pain Management, Smoking Cessation Medications and DC Order Prescriptions: New tramadol 50 mg tablet 50 mg PO Q6H PRN (Reason: pain, moderate) Qty: 10 RF: 0 oxycodone 5 mg tablet 5 mg PO Q6H PRN (Reason: pain, severe) Qty: 10 RF: 0 Continued ropinirole 0.5 mg Tablet 1.5 mg PO QAM RF: 0 benztropine 2 mg Tablet 2 mg PO QAM RF: 0 albuterol sulfate 90 mcg/actuation Hfa Aerosol Inhaler 2 puff INHALATION BID PRN (Reason: Wheezing) RF: 0 paroxetine HCl 40 mg Tablet 40 mg PO QAM RF: 0 lithium carbonate 300 mg Tablet 600 mg PO BID RF: 0 amitriptyline 100 mg Tablet 100 mg PO HS RF: 0 ropinirole 4 mg Tablet 4 mg PO HS RF: 0 aripiprazole [Abilify] 30 mg Tablet 30 mg PO QAM RF: 0 Breo Ellipta 100-25 mcg/dose Blister With Device 1 inh INHALATION QAM RF: 0 omeprazole 40 mg Capsule,Delayed Release(Dr/Ec) 40 mg PO QPM RF: 0 furosemide 20 mg Tablet 20 mg PO DAILY PRN (Reason: Edema) RF: 0 prazosin 2 mg Capsule 3 mg PO HS RF: 0 rivastigmine tartrate 1.5 mg Capsule 1.5 - 3 mg PO BID RF: 0 ketoconazole 2 % Shampoo 2 % TOPICAL 2XWK RF: 0 meloxicam 7.5 mg Tablet 7.5 mg PO BID RF: 0 potassium chloride [Klor-Con] 20 mEq Packet 20 meq PO DAILY PRN (Reason: Edema) RF: 0 Discharge Orders: Discharge Order (Routine); Ordered 06/29/19 Ordered By: Adalberto Ness/Other Patient Handouts: Catheter Bag Urinary Empty Clean, Catheter Indwelling Urinary Dc, Leg Bag Care Dc Admission Data Admit Date/Time: 06/27/19 13:14 Attending Provider: Adalberto Diaz Admit Provider: Adalberto Diaz Primary Care Provider: Andrés Vogel I. Other Providers: Vicki Tirado ; Diaz Walters ; Timmy Mart ; [place] Other Interventions: Discharge Summary Assessment (RN) Last Done: 06/29/19 13:27 DC Date/Time DO NOT enter until pt leaves facility: 06/29/19 15:22
== END 2019-06-29 15:22 | disposition home health service (06) | DRG 471 ==
LOC: ASU 05:05 → 1E 13:14 → 3E 06-28 11:53